=== PATIENT | male | born 1945 | race Caucasian/White ===

== ENCOUNTER → 2016-04-22 | Outpatient (CLI) | payer MEDICARE, BC, OTHER ==
[2016-04-22 12:29] LABS: PROTHROMBIN TIME 41.6 SEC (11.4-15.4)
== END ==
LOC: OD 11:22
PROVIDERS: ATTEND Internal Medicine
DX: I48.0 Paroxysmal atrial fibrillation (principal); Z79.01 Long term (current) use of anticoagulants
CPT/HCPCS: 36415; 85610

== ENCOUNTER → 2016-06-29 | Outpatient (CLI) | payer MEDICARE, BC, OTHER | LOC: OD 11:17 | PROVIDERS: ATTEND Internal Medicine | DX: I48.0 Paroxysmal atrial fibrillation (principal); Z79.01 Long term (current) use of anticoagulants | CPT/HCPCS: 36415; 85610 ==

== ENCOUNTER → 2016-08-19 | Outpatient (CLI) | payer MEDICARE, BC, OTHER ==
[2016-08-19 12:55] LABS: PROTHROMBIN TIME 33.8 SEC (11.4-15.4)
[2016-08-19 13:01] LABS: ANION GAP 15 (5-19); BLOOD UREA NITROGEN 15 mg/dL (7-20); CALCIUM 9.6 mg/dL (8.4-10.2); CARBON DIOXIDE 24 mmol/L (22-30); CHLORIDE 103 mmol/L (98-107); CREATININE RESULT 0.93 mg/dL (0.52-1.25); GLUCOSE 89 mg/dL (75-110); POTASSIUM 4.5 mmol/L (3.6-5.0); SODIUM 141.7 mmol/L (137-145)
== END ==
LOC: OD 11:32
PROVIDERS: ATTEND Internal Medicine
DX: I25.118 Atherosclerotic heart disease of native coronary artery with other forms of angina pectoris (principal); I48.0 Paroxysmal atrial fibrillation; Z79.899 Other long term (current) drug therapy; R06.09 Other forms of dyspnea; E78.5 Hyperlipidemia, unspecified; I10 Essential (primary) hypertension; I25.2 Old myocardial infarction; G47.30 Sleep apnea, unspecified; Z79.01 Long term (current) use of anticoagulants; J84.9 Interstitial pulmonary disease, unspecified; E66.9 Obesity, unspecified
CPT/HCPCS: 36415; 80048; 85610

== ENCOUNTER → 2016-11-18 | Outpatient (CLI) | payer MEDICARE, BC, OTHER ==
[2016-11-18 13:09] LABS: PROTHROMBIN TIME 32.1 SEC (11.4-15.4)
== END ==
LOC: OD 12:16
PROVIDERS: ATTEND Internal Medicine
DX: I48.0 Paroxysmal atrial fibrillation (principal); Z79.01 Long term (current) use of anticoagulants
CPT/HCPCS: 36415; 85610

== ENCOUNTER → 2017-03-17 | Outpatient (CLI) | payer MEDICARE, BC, OTHER ==
[2017-03-17 17:16] LABS: PROTHROMBIN TIME 22.2 SEC (11.4-15.4)
== END ==
LOC: OD 15:27
PROVIDERS: ATTEND Internal Medicine Pulmonary Disease
DX: T50.905A Adverse effect of unspecified drugs, medicaments and biological substances, initial encounter (principal)
CPT/HCPCS: 36415; 85610

== ENCOUNTER → 2017-03-21 | Outpatient (CLI) | payer MEDICARE, BC, OTHER | LOC: OD 11:45 | PROVIDERS: ATTEND Internal Medicine Pulmonary Disease | DX: T50.905A Adverse effect of unspecified drugs, medicaments and biological substances, initial encounter (principal); X58.XXXA Exposure to other specified factors, initial encounter | CPT/HCPCS: 36415; 85610 ==

== ENCOUNTER → 2017-03-23 | Outpatient (CLI) | payer MEDICARE, BC, OTHER ==
[2017-03-23 13:19] LABS: PROTHROMBIN TIME 22.1 SEC (11.4-15.4)
== END ==
LOC: OD 12:05
PROVIDERS: ATTEND Internal Medicine Pulmonary Disease
DX: T50.905A Adverse effect of unspecified drugs, medicaments and biological substances, initial encounter (principal)
CPT/HCPCS: 36415; 85610

== ENCOUNTER → 2017-03-28 | Outpatient (CLI) | payer MEDICARE, BC, OTHER ==
[2017-03-28 14:30] LABS: PROTHROMBIN TIME 27.6 SEC (11.4-15.4)
== END ==
LOC: OD 13:43
PROVIDERS: ATTEND Internal Medicine Pulmonary Disease
DX: T50.905A Adverse effect of unspecified drugs, medicaments and biological substances, initial encounter (principal); X58.XXXA Exposure to other specified factors, initial encounter
CPT/HCPCS: 36415; 85610

== ENCOUNTER → 2017-03-31 | Outpatient (CLI) | payer MEDICARE, BC, OTHER ==
[2017-03-31 16:30] LABS: PROTHROMBIN TIME 22.8 SEC (11.4-15.4)
== END ==
LOC: OD 15:28
PROVIDERS: ATTEND Internal Medicine Pulmonary Disease
DX: T50.905A Adverse effect of unspecified drugs, medicaments and biological substances, initial encounter (principal)
CPT/HCPCS: 36415; 85610

== ENCOUNTER → 2017-04-03 | Outpatient (CLI) | payer MEDICARE, BC, OTHER ==
[2017-04-03 13:26] LABS: PROTHROMBIN TIME 28.9 SEC (11.4-15.4)
== END ==
LOC: OD 12:10
PROVIDERS: ATTEND Internal Medicine Pulmonary Disease
DX: T50.905A Adverse effect of unspecified drugs, medicaments and biological substances, initial encounter (principal)
CPT/HCPCS: 36415; 85610

== ENCOUNTER → 2017-04-24 | Outpatient (CLI) | payer MEDICARE, BC, OTHER ==
[2017-04-24 14:47] LABS: INTERNATIONAL RATION (INR) 2.63; PROTHROMBIN TIME 29.4 SEC (11.4-15.4)
== END ==
LOC: OD 13:46
PROVIDERS: ATTEND Internal Medicine Pulmonary Disease
DX: T50.905A Adverse effect of unspecified drugs, medicaments and biological substances, initial encounter (principal)
CPT/HCPCS: 36415; 85610

== ENCOUNTER → 2017-07-26 | Outpatient (CLI) | payer MEDICARE, BC, OTHER ==
[2017-07-26 13:04] LABS: INTERNATIONAL RATION (INR) 2.55; PROTHROMBIN TIME 28.6 SEC (11.4-15.4)
== END ==
LOC: OD 12:05
PROVIDERS: ATTEND Internal Medicine Pulmonary Disease
DX: T50.905A Adverse effect of unspecified drugs, medicaments and biological substances, initial encounter (principal)
CPT/HCPCS: 36415; 85610

== ENCOUNTER → 2018-02-26 | Outpatient (CLI) | payer MEDICARE, BC, OTHER ==
[2018-02-26 14:22] LABS: INTERNATIONAL RATION (INR) 2.41; PROTHROMBIN TIME 27.4 SEC (11.4-15.4)
== END ==
LOC: OD 13:41
PROVIDERS: ATTEND Internal Medicine Pulmonary Disease
DX: Z51.81 Encounter for therapeutic drug level monitoring (principal); Z79.01 Long term (current) use of anticoagulants; T50.905A Adverse effect of unspecified drugs, medicaments and biological substances, initial encounter
CPT/HCPCS: 36415; 85610